=== PATIENT | female | born 1945 | race Caucasian/White ===

== ENCOUNTER 2018-06-06 18:44 | Observation (INO) | payer OTHER ==
[~2018-06-06] VITALS: Ht 165.1 cm; Wt 73.6 kg
[2018-06-06] MEDS ORDERED: SODIUM CHLORIDE FLUSH 10ML SYR IVF ONE ×2 (19:00→20:30)
[2018-06-06] MEDS ORDERED: PLEASE ENTER HEIGHT AND WEIGHT MC SCH (19:00)
[2018-06-06] MEDS ORDERED: ASPIRIN 81 MG TABLET CHEW PO ONE (19:00)
[2018-06-06 19:41] LABS: BASOPHILS # (AUTO) 0.03 x10^3/uL (0-0.1); BASOPHILS % (AUTO) 1 % (0-1); EOSINOPHILS # (AUTO) 0.03 x10^3/uL (0-0.4); EOSINOPHILS % (AUTO) 1 % (1-7); LYMPHOCYTES # (AUTO) 0.83 x10^3/uL (1-3.4); LYMPHOCYTES % (AUTO) 19 % (22-44); MD NO; MEAN CORPUSCULAR HGB CONC 34.5 g/dL (32.4-35.8); MEAN CORPUSCULAR VOLUME 92.8 fL (80-100); MEAN PLATELET VOLUME 7.2 fL (7.4-10.4); MONOCYTES # (AUTO) 0.59 x10^3/uL (0.2-0.8); MONOCYTES % (AUTO) 13 % (2-9); NEUTROPHILS # (AUTO) 3.02 x10^3/uL (1.8-6.8); NEUTROPHILS % (AUTO) 67 % (42-75); PLATELET COUNT 197 x10^3/uL (130-400); RED BLOOD COUNT 4.45 x10^6/uL (3.82-5.3); RED CELL DISTRIBUTION WIDTH 12.7 % (9.6-15.2)
--- NOTE | 2018-06-06 19:45 | NUR ---
PT. REPORTS STERNAL CP X 4 MONTHS OFF/ON HAS BEEN CONSTANT ALL DAY TODAY. PAIN DESCRIBED A DULL PAIN THAT RADIATES ACROSS UPPER CHEST; RADIATES TO UPPER BACK AND SHOULDERS. PT. DENIES ANY DAILY MEDS OR ANY MEDICAL HX. DENIES COUGH, N/V, SWEATING, OR SOB. TOOK 81 MG [employer].
[2018-06-06 19:53] LABS: ALBUMIN 3.7 g/dL (3.4-5.0); ANION GAP 8 mmol/L (5-15); CALCIUM 9.1 mg/dL (8.5-10.1); CHLORIDE 104 mmol/L (98-107)
[2018-06-06 19:58] LABS: CREATININE 0.67 mg/dL (0.55-1.02); TROPONIN I < 0.015 ng/mL (0.000-0.045)
[2018-06-06] MEDS ORDERED: ASPIRIN 81 MG TABLET CHEW ONE (20:04)
[2018-06-06] MEDS ORDERED: OMNIPAQUE 350 MG/ML, 100ML BOTTLE ONE (20:57)
--- NOTE | 2018-06-06 23:12 | NUR ---
report to brandy pt to room with tech
[2018-06-06] MEDS ORDERED: OXYcodone IR 5MG TABLET PO PRN (23:30)
[2018-06-06] MEDS ORDERED: DOCUSATE 100 MG CAPSULE PO PRN (23:30)
[2018-06-06] MEDS ORDERED: morphine SULFATE 10 MG/ML, 1ML IVPush PRN (23:30)
[2018-06-06] MEDS ORDERED: ONDANSETRON 2MG/ML, 2ML IVPush PRN (23:30)
[2018-06-06] MEDS ORDERED: LOSARTAN 50MG TABLET PO SCH (23:30)
[2018-06-06] MEDS ORDERED: ONDANSETRON ODT 4 MG PO PRN (23:30)
[2018-06-06] MEDS ORDERED: hydrALAzine 20 MG/ML, 1ML IVPush PRN (23:30)
[2018-06-06] MEDS ORDERED: PROMETHAZINE 25 MG/ML, 1ML IM PRN (23:30)
[2018-06-06] MEDS ORDERED: NITROGLYCERIN 0.4 MG BOTTLE (25 TABS) SL PRN (23:30)
[2018-06-06] MEDS ORDERED: ACETAMINOPHEN 325 MG TABLET PO PRN (23:30)
[2018-06-06] MEDS ORDERED: BISACODYL 10 MG SUPP PR PRN (23:30)
[2018-06-06] MEDS ORDERED: LABETALOL 5MG/ML, 20ML IVPush PRN (23:30)
[2018-06-06] MEDS ORDERED: POLYETHYLENE GLYCOL 17 GM PACKET PO PRN (23:30)
[2018-06-07 00:09] LABS: FREE T4 (FREE THYROXINE) 0.89 ng/dL (0.76-1.46); THYROID STIMULATING HORMONE 3.56 mIU/L (0.358-3.740)
[2018-06-07 00:16] LABS: HEMOGLOBIN A1C 5.5 % (4.2-6.3)
[2018-06-07] MEDS: SODIUM CHLORIDE 0.9% 1,000 ML IV SCH ×2 (01:02→10:00)
[2018-06-07 01:04] VITALS: BP 135/76
[2018-06-07 01:08] LABS: TROPONIN I < 0.015 ng/mL (0.000-0.045)
[2018-06-07 03:55] VITALS: BP 124/68
[2018-06-07] MEDS ORDERED: ASPIRIN 325 MG TABLET EC PO SCH (06:00)
[2018-06-07 07:13] LABS: BASOPHILS # (AUTO) 0.03 x10^3/uL (0-0.1); BASOPHILS % (AUTO) 1 % (0-1); EOSINOPHILS # (AUTO) 0.01 x10^3/uL (0-0.4); EOSINOPHILS % (AUTO) 0 % (1-7); LYMPHOCYTES # (AUTO) 0.77 x10^3/uL (1-3.4); LYMPHOCYTES % (AUTO) 22 % (22-44); MD NO; MEAN CORPUSCULAR HEMOGLOBIN 31.4 pg (27.0-34.8); MEAN CORPUSCULAR VOLUME 92.3 fL (80-100); MONOCYTES # (AUTO) 0.52 x10^3/uL (0.2-0.8); MONOCYTES % (AUTO) 15 % (2-9); NEUTROPHILS # (AUTO) 2.23 x10^3/uL (1.8-6.8); NEUTROPHILS % (AUTO) 63 % (42-75); PLATELET COUNT 174 x10^3/uL (130-400); RED BLOOD COUNT 4.16 x10^6/uL (3.82-5.3); RED CELL DISTRIBUTION WIDTH 12.9 % (9.6-15.2)
[2018-06-07 07:14] VITALS: BP 119/60
[2018-06-07 07:24] LABS: TROPONIN I < 0.015 ng/mL (0.000-0.045)
[2018-06-07 11:06] LABS: ALANINE AMINOTRANSFERASE 82 U/L (12-78); ALBUMIN 3.2 g/dL (3.4-5.0); ANION GAP 4 mmol/L (5-15); CALCIUM 8.8 mg/dL (8.5-10.1); CHLORIDE 110 mmol/L (98-107); CHOLESTEROL, TOTAL 214 mg/dL (140-239); CREATININE 0.71 mg/dL (0.55-1.02)
[2018-06-07 11:09] LABS: ALKALINE PHOSPHATASE 114 U/L (45-117); BILIRUBIN,TOTAL 0.4 mg/dL (0.2-1.0); HDL CHOL % 20 % (28-40); HDL CHOLESTEROL (DIRECT) 43 mg/dL (40-60); LDL CHOLESTEROL,CALCULATED 117 mg/dL (54-169); LDL/HDL RATIO 2.7 (0.5-3.0); TOTAL PROTEIN 6.4 g/dL (6.4-8.2); TRIGLYCERIDES 272 mg/dL (50-200); VLDL CHOLESTEROL 54 mg/dL (0-25)
[2018-06-07 13:16] VITALS: BP 138/78
[2018-06-07] MEDS ORDERED: LOSA50TA2 PO (17:07)
== END 2018-06-07 17:44 | disposition home or self-care (01) ==
LOC: ED 20:46 → 5SO 22:19 → UNDOADMOB 22:19 → INTOOBSV 22:19 → 5SO 23:03 → UNDODISOB 06-07 17:44
PROVIDERS: ADMIT Internal Medicine; ATTEND Internal Medicine
DX: R07.89 Other chest pain (principal); I10 Essential (primary) hypertension; K76.89 Other specified diseases of liver; Z82.49 Family history of ischemic heart disease and other diseases of the circulatory system; Z83.3 Family history of diabetes mellitus; Z90.710 Acquired absence of both cervix and uterus
CPT/HCPCS: 36415; 71045; 71275; 78452; 80048; 80053; 80061; 82040; 83036; 83735; 83880; 84439; 84443; 84484; 85025; 93005; 93017; 93306; 99284; A9502; C9898; G0378; J7030; Q9967; 99285